=== PATIENT | male | born 1995 | race American Indian/Alaskan Native ===

== ENCOUNTER 2021-12-17 18:56 | Emergency (ER) | payer SELFPAY ==
[2021-12-17 19:43] VITALS: BP 103/62
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
== END 2021-12-17 22:30 | disposition left against medical advice (07) ==
LOC: ED 18:56
DX: R07.81 Pleurodynia (principal); Z53.21 Procedure and treatment not carried out due to patient leaving prior to being seen by health care provider
CPT/HCPCS: 71046